=== PATIENT | female | born 1955 | race Caucasian/White ===

== ENCOUNTER 2018-10-31 13:28 | Emergency (ER) | payer OTHER ==
[2018-10-31] MEDS ORDERED: ASPIRIN CHEW 81 MG TABLET PO STA (13:56)
--- NOTE | 2018-10-31 13:59 | ED Physician Documentation ---
PD HPI CHEST PAIN - Stated complaint Stated Complaint: CP - Chief complaint Chief Complaint: Cardiac - History obtained from History obtained from: Patient, Family - History of Present Illness Timing - onset: Other (This is a kasey 63-year-old woman who is visiting from [place]. She has a history of latent TB treated with antibiotics 4 years ago and has a chronically abnormal chest x-ray it sounds like. Over the last 4 days she has been short of breath with fevers and mild right-sided chest pain. She was seen in a clinic yesterday and had a chest x-ray done and was diagnosed with pneumonia and put on Levaquin. Today she was walking uphill and now developed severe but sharp left-sided chest pain with dyspnea. It is mostly gone now but still present a little bit but hurts if she takes deep breaths or laughs. She denies pedal edema or calf pain. She did fly recently.) Review of Systems Ten Systems: 10 systems reviewed and negative Constitutional: reports: Fever, Chills Nose: denies: Rhinorrhea / runny nose, Congestion Throat: denies: Sore throat Cardiac: reports: Chest pain / pressure. denies: Palpitations, Pedal edema, Calf pain Respiratory: reports: Dyspnea. denies: Cough, Hemoptysis, Wheezing PD PAST MEDICAL HISTORY - Present Medications Home Medications: Ambulatory Orders Medication Instructions Recorded Confirmed Cetirizine [ZyrTEC] 10 mg PO ONCE 10/31/18 10/31/18 - Allergies Allergies/Adverse Reactions: Allergies Allergy/AdvReac Type Severity Reaction Status Date / Time No Known Drug Allergies Allergy Verified 10/31/18 13:36 PD ED PE NORMAL - Vitals Vital signs reviewed: Yes - General General: Alert and oriented X 3, No acute distress - HEENT HEENT: PERRL, EOMI - Neck Neck: Supple, no meningeal sign, No bony TTP - Cardiac Cardiac: RRR, No murmur - Respiratory Respiratory: No respiratory distress, Other (Clear breath sounds but winces with deep breathing and laughing) - Abdomen Abdomen: Soft, Non tender - Back Back: No CVA TTP, No spinal TTP - Derm Derm: Normal color, Warm and dry - Extremities Extremities: No edema, No calf tenderness / cord - Neuro Neuro: Alert and oriented X 3, Normal speech Results - Vitals Vitals: Vital Signs - 24 hr 10/31/18 10/31/18 13:34 14:12 Temperature 36.2 C L Heart Rate 90 85 Respiratory 20 14 Rate Blood Pressure 111/51 L 145/78 H O2 Saturation 98 100 Oxygen O2 Source Room air - EKG (time done) 1339 Rate: Rate (enter#) (86) Rhythm: NSR Counce: Normal Intervals: Normal UT QRS: Normal Ischemia: Normal ST segments. No: ST elevation c/w ischemia, ST elevation c/w repol, ST depression Computer interpretation: Agree with computer - Labs Labs: Laboratory Tests 10/31/18 10/31/18 10/31/18 14:05 14:05 14:05 WBC 10.8 RBC 3.70 L Hgb 11.6 L Hct 34.3 L MCV 92.7 MCH 31.5 H MCHC 34.0 RDW 12.4 Plt Count 343 MPV 6.4 L Neut # (Auto) 8.3 H Lymph # (Auto) 1.2 L Morris # (Auto) 1.2 H Eos # (Auto) 0.0 Baso # (Auto) 0.0 Absolute Nucleated RBC 0.01 Nucleated RBC % 0.1 Sodium 133 L Potassium 3.6 Chloride 98 L Carbon Dioxide 27 Anion Gap 8.0 BUN 10 Creatinine 0.6 Estimated GFR (MDRD) 101 Glucose 111 H Calcium 8.5 Total Bilirubin 0.5 AST 32 ALT 16 Alkaline Phosphatase 77 Troponin I < 0.04 Total Protein 7.7 Albumin 3.4 Globulin 4.3 H Albumin/Globulin Ratio 0.8 L Lipase 36 10/31/18 16:00 WBC RBC Hgb Hct MCV MCH MCHC RDW Plt Count MPV Neut # (Auto) Lymph # (Auto) Morris # (Auto) Eos # (Auto) Baso # (Auto) Absolute Nucleated RBC Nucleated RBC % Sodium Potassium Chloride Carbon Dioxide Anion Gap BUN Creatinine Estimated GFR (MDRD) Glucose Calcium Total Bilirubin AST ALT Alkaline Phosphatase Troponin I < 0.04 Total Protein Albumin Globulin Albumin/Globulin Ratio Lipase - Rads (name of study) CTA Chest Radiology: EMP read contemporaneously (Mild but multilobar pneumonia) PD MEDICAL DECISION MAKING - ED course ED course: 63-year-old woman with pleuritic chest pain starting today. She was diagnosed with pneumonia yesterday and is on appropriate treatment with levofloxacin. The pain is reproducible with laughing and deep breathing and given 2- troponins in the appearance of the x-ray I suspect she is having pleuritic pain from the pneumonia. Follow-up on return home was advised. Departure - Departure Disposition: 01 Home, Self Care Clinical Impression: Chest pain Qualifiers: Chest pain type: chest pain on breathing Qualified Code(s): R07.1 - Chest pain on breathing; R07.81 - Pleurodynia Pneumonia Qualifiers: Pneumonia type: due to unspecified organism Laterality: bilateral Lung location: unspecified part of lung Qualified Code(s): J18.9 - Pneumonia, unspecified organism Condition: Good Record reviewed to determine appropriate education?: Yes Instructions: ED Pneumonia Adult Comments: As discussed your cardiac testing is negative, it seems likely based on what we know at this juncture that your pain is actually due to pneumonia touching the inside of the chest wall, "the pleura." Follow-up with your doctor on return home. As discussed will need a repeat chest x-ray in 4-6 weeks to prove clearance. Return anytime if worse. Continue the antibiotics.
[2018-10-31 14:13] LABS: BASOPHILS % (AUTO) 0.2 %; EOSINOPHILS % (AUTO) 0.4 %; HGB - HEMOGLOBIN 11.6 g/dL (12.0-16.0); LYMPHOCYTES # (AUTO) 1.2 10^3/uL (1.5-3.5); LYMPHOCYTES % (AUTO) 11.2 %; MEAN CORPUSCULAR HEMOGLOBIN 31.5 pg (27.0-31.0); MEAN CORPUSCULAR VOLUME 92.7 fL (81.0-99.0); MEAN PLATELET VOLUME 6.4 fL (7.9-10.8); MONOCYTES # (AUTO) 1.2 10^3/uL (0.0-1.0); MONOCYTES % (AUTO) 11.2 %; NEUTROPHILS # (AUTO) 8.3 10^3/uL (1.5-6.6); PLT - PLATELET COUNT 343 10^3/uL (130-450); RED CELL DISTRIBUTION WIDTH 12.4 % (12.0-15.0); WHITE BLOOD COUNT 10.8 x10^3/uL (4.8-10.8)
[2018-10-31 14:27] LABS: ALBUMIN 3.4 g/dL (3.2-5.5); ALBUMIN/GLOBULIN RATIO 0.8 (1.0-2.2); BILIRUBIN,TOTAL 0.5 mg/dL (0.2-1.0); CALCIUM 8.5 mg/dL (8.5-10.3); CREATININE 0.6 mg/dL (0.4-1.0); TOTAL PROTEIN 7.7 g/dL (6.7-8.2)
[2018-10-31] MEDS ORDERED: IOPAMIDOL-300 100 ML VIAL ONE (14:37)
[2018-10-31] MEDS ORDERED: IOPAMIDOL-300 100 ML VIAL IVP ONE (15:01)
--- NOTE | 2018-10-31 15:20 | CT Report ---
Reason: Chest pain, dyspnea Procedure Date: 10/31/2018 Accession Number: [id number] / [id number] Procedure: CT - ANGIO CHEST W/WO CPT Code: FULL RESULT: EXAM: CT ANGIOGRAM CHEST EXAM DATE: 10/31/2018 03:00 PM. CLINICAL HISTORY: Chest pain, dyspnea. COMPARISON: None. TECHNIQUE: Routine helical imaging was performed through the chest in the pulmonary arterial phase. IV Contrast: ISOVUE 300 80mL. Reconstructions: Coronal 3-D MIP reconstructions.Sagittal and coronal. In accordance with CT protocol optimization, one or more of the following dose reduction techniques were utilized for this exam: automated exposure control, adjustment of mA and/or KV based on patient size, or use of iterative reconstructive technique. FINDINGS: Pulmonary Arteries: Diagnostic quality: Adequate through the segmental arteries. No evidence for acute or chronic pulmonary emboli. Main pulmonary artery appears normal in size. Lungs/Pleura: There are consolidative opacities within the right middle lobe, lingula, and posterior segment right upper lobe. There are clustered nodules in the superior segment of the right lower lobe. There is a trace right pleural effusion. Mediastinum: Heart size is normal. Negative for pericardial effusion. No mediastinal lymphadenopathy. Thoracic Aorta: Thoracic aorta is not well opacified with contrast. No evidence of aneurysm. Negligible calcified plaque. Upper Abdomen: Unremarkable. Other: None. IMPRESSION: 1. Negative for acute pulmonary embolism. 2. Multilobar consolidation consistent with pneumonia. 3. Trace right pleural effusion RADIA
[2018-10-31 16:36] VITALS: BP 96/62
== END 2018-10-31 16:41 | disposition home or self-care (01) ==
LOC: ED 13:28
DX: J18.9 Pneumonia, unspecified organism (principal); R07.1 Chest pain on breathing; R07.81 Pleurodynia; Z86.11 Personal history of tuberculosis
CPT/HCPCS: 36415; 71275; 80053; 83690; 84484; 85025; 93005; 99283; A9270; Q9967